=== PATIENT | male | born 1950 | race Caucasian/White ===

== ENCOUNTER → 2018-01-21 | Outpatient (CLI) | payer MEDICARE ==
[2018-01-21 09:12] LABS: Blood Urea Nitrogen 19 mg/dL (9-20)
--- NOTE | 2018-01-21 10:42 | CT ---
EXAMINATION TYPE: CT abdomen w con DATE OF EXAM: 01/21/2018 COMPARISON: 01/29/2015 HISTORY: 67-year-old male lower abdominal pain, LUQ pain for 6 months TECHNIQUE: Contiguous axial scanning of the abdomen and pelvis following administration of 100 ml Iso judith 300 IV contrast. Delayed images through the kidneys and coronal/sagittal reconstructions perform ed. CT DLP: 1142.8 mGycm Automated exposure control for dose reduction was used. FINDINGS: Heart normal size without pericardial effusion. Emphysematous changes suggested in the lower lungs. Ectatic lower descending thoracic aorta 2.9 cm. No focal liver lesion or biliary ductal dilatation. Portal venous system is patent. Gallbladder,, right kidney, and pancreas show no gross abnormality. Stable punctate 3 mm nonobstructive calculus upper pole left kidney. Mild thickening of the bilateral adrenal glands without discrete nodularity. Couple calcified granulomas in the spleen. There is a stent seen within the infrarenal IVC extending into the right common iliac vein. Moderate atherosclerotic calcifications infrarenal abdominal aorta and iliac arteries. No dilated small bowel, free fluid, or free air. No mesenteric or retroperitoneal lymphadenopathy. Mild overall stool burden. No pericolonic inflammatory change seen within the upper abdomen. Partiall y visualized diverticulosis in the lower descending colon. Bones: Bilateral L5 pars defects with redemonstrated grade 1, nearly grade 2 anterolisthesis at L5-S1 . IMPRESSION: 1. NO SPECIFIC ABNORMALITY IDENTIFIED IN THE LEFT UPPER QUADRANT TO EXPLAIN THE PATIENT'S SYMPTOMS. 2. STABLE PUNCTATE 3 MM NONOBSTRUCTIVE LEFT RENAL CALCULUS AND BILATERAL L5 PARS DEFECTS WITH GRADE 1 , NEARLY GRADE 2 ANTEROLISTHESIS AT L5-S1. 3. INFRARENAL IVC AND RIGHT COMMON ILIAC VEIN STENT REDEMONSTRATED 4. PARTIALLY VISUALIZED DISTAL COLONIC DIVERTICULOSIS.
== END | disposition home or self-care (01) ==
LOC: RADCTMAIN 08:16
PROVIDERS: ATTEND Family Medicine
DX: N20.0 Calculus of kidney (principal); K57.30 Diverticulosis of large intestine without perforation or abscess without bleeding; Z95.820 Peripheral vascular angioplasty status with implants and grafts; Z95.828 Presence of other vascular implants and grafts
CPT/HCPCS: 82565; 84520; 74160; 36415; Q9967